=== PATIENT | male | born 2005 | race Caucasian/White ===

== ENCOUNTER 2024-05-07 19:49 | Emergency (ER) | payer OTHER, SELFPAY ==
--- NOTE | 2024-05-07 22:54 | RAD REPORT ---
EXAM DESCRIPTION: RAD - Elbow Right 3 View - 05/07/2024 8:30 pm CLINICAL HISTORY: PAIN COMPARISON: No comparisons TECHNIQUE: Right elbow, 3 views. FINDINGS: No fracture is identified. Elevated anterior and posterior elbow fat pads suggesting an ef fusion. There is no dislocation or periosteal reaction noted. No foreign body or other soft tissue abnormalit y. IMPRESSION: Elbow joint effusion suggesting an occult fracture. Please consider short-term radiograp hic follow-up in 7-10 days to evaluate for signs of healing.
--- NOTE | 2024-05-07 23:31 | ER ---
Nurse's Notes [facility] Name: Keshav Barr Age: 18 yrs Sex: Male : 2005 Arrival Date: 05/07/2024 Time: 19:49 Bed Treatment Private MD: Diagnosis: Effusion, right elbow-suspected occult fracture Presentation: 05/07 20:06 Chief complaint: Patient states: fell on right arm yesterday while skateboarding. tm6 Swollen, hurts to move. Coronavirus screen: Vaccine status: Patient reports receiving the 2nd dose of the covid vaccine. Ebola Screen: Patient negative for fever greater than or equal to 101.5 degrees Fahrenheit, and additional compatible Ebola Virus Disease symptoms Patient denies exposure to infectious person. Patient denies travel to an Ebola-affected area in the 21 days before illness onset. No symptoms or risks identified at this time. Initial Sepsis Screen: Does the patient meet any 2 criteria? No. Patient's initial sepsis screen is negative. Does the patient have a suspected source of infection? No. Patient's initial sepsis screen is negative. Risk Assessment: Do you want to hurt yourself or someone else? Patient reports no desire to harm self or others. Onset of symptoms was May 06, 2024. 20:06 Method Of Arrival: Ambulatory tm6 20:06 Acuity: JACK 4 tm6 Triage Assessment: 20:07 General: Appears in no apparent distress. Behavior is calm, cooperative. Pain: tm6 Complains of pain in right elbow Pain currently is 6 out of 10 on a pain scale. EENT: No signs and/or symptoms were reported regarding the EENT system. Neuro: Level of Consciousness is awake, alert, obeys commands, Oriented to person, place, time, situation. Cardiovascular: Patient's skin is warm and dry. Respiratory: Airway is patent Respiratory effort is even, unlabored, Respiratory pattern is regular, symmetrical. GI: No signs and/or symptoms were reported involving the gastrointestinal system. Abdomen is flat, non-distended. : No signs and/or symptoms were reported regarding the genitourinary system. Derm: No signs and/or symptoms reported regarding the dermatologic system. Musculoskeletal: Swelling present in right arm Reports pain in right elbow since yesterday. Pain is 6 out of 10 on a pain scale. Historical: - Allergies: 20:07 No Known Allergies; tm6 - PMHx: 20:07 None; tm6 - PSHx: 20:07 None; tm6 - Immunization history:: Client reports receiving the 2nd dose of the Covid vaccine. - Infectious Disease History:: Denies. - Social history:: Smoking status: Patient denies any tobacco usage or history of. Patient uses alcohol, but reports only rare drinking. street drugs, marijuana. Screenin:05 [facility] ED Fall Risk Assessment (Adult) History of falling in the last 3 months, me1 including since admission Yes- single mechanical fall (1 pt) Confusion or Disorientation No (0 pts) Intoxicated or Sedated No (0 pts) Impaired Gait No (0 pts) Mobility Assist Device Used No (0 pt) Altered Elimination No (0 pt) Score/Fall Risk Level 0 - 2 = Low Risk Maintained a safe environment, Provided non-skid footwear, Hourly rounding (assess needs \T\ fall precautionary measures) done. Abuse screen: Denies threats or abuse. Nutritional screening: No deficits noted. Tuberculosis screening: No symptoms or risk factors identified. Assessment: 21:05 General: Appears comfortable, well developed, well nourished, Behavior is calm, me1 cooperative, appropriate for age, Reports fell while skateboarding yesterday and hit his right arm. c/o pain 5/10 when moving his right arm, pain is close to the elbow, some edema noted. Pain: Denies pain. Complains of pain in right elbow Pain does not radiate. Pain currently is 0 out of 10 on a pain scale. at worst was 5 out of 10 on a pain scale. Quality of pain is described as stabbing, Pain began suddenly, Is episodic, Aggravated by increased activity, movement. Pain: Alleviated by rest. Neuro: Neuro: Level of Consciousness is awake, alert, obeys commands, Oriented to person, place, time, situation, Appropriate for age. Cardiovascular: Patient's skin is warm and dry. Respiratory: Airway is patent Trachea midline Respiratory effort is even, unlabored, Respiratory pattern is regular, symmetrical. GI: No signs and/or symptoms were reported involving the gastrointestinal system. : No signs and/or symptoms were reported regarding the genitourinary system. EENT: No signs and/or symptoms were reported regarding the EENT system. Derm: Skin is intact, is healthy with good turgor, Skin is pink, warm \T\ dry. Musculoskeletal: Reports pain in right arm and right elbow since yesterday. Injury Description: fell while skateboarding. Vital Signs: 20:05 BP 105 / 69; Pulse 64; Resp 19; Temp 97.1(TE); Pulse Ox 98% on R/A; Weight 64.86 kg; tm6 Height 5 ft. 8 in. ; Pain 6/10; 23:14 BP 107 / 62; Pulse 71; Resp 16; Temp 98.1; Pulse Ox 96% on R/A; me1 20:05 Body Mass Index 21.74 (64.86 kg, 172.72 cm) tm6 20:05 Pain Scale: Adult tm6 ED Course: 19:51 Patient arrived in ED. jj6 20:07 Triage completed. tm6 20:07 Norma Ken PA-C is PHCP. sb4 20:07 Chalino Fonseca MD is Attending Physician. sb4 20:10 Arm band placed on left wrist. tm6 20:31 Elbow Right 3 View XRAY In Process Unspecified. EDMS 21:05 Melanie Alfaro, DAVIN is Primary Nurse. me1 21:05 Patient has correct armband on for positive identification. Bed in low position. Call me1 light in reach. Side rails up X2. Provided Education on: POC. Verbalized understanding. . 21:05 No provider procedures requiring assistance completed. Patient did not have IV access me1 during this emergency room visit. 23:30 Negrito Butcher MD is Referral Physician. sb4 05/08 00:28 Orthoglass splint: posterior long arm splint applied to the right arm. Sling applied to oe right arm. Administered Medications: 05/07 23:51 Drug: Hydrocodone-Acetaminophen PO (7.5 mg-325 mg) 1 tabs PO once Route: PO; me1 23:51 Drug: Ondansetron PO 4 mg PO once Route: PO; me1 Medication: 21:05 VIS not applicable for this client. me1 Outcome: 23:31 Discharge ordered by . sb4 05/08 01:09 Discharged to home ambulatory, vc1 Condition: good Discharge instructions given to patient, Instructed on discharge instructions, follow up and referral plans. Demonstrated understanding of instructions, follow-up care, 01:09 Patient left the ED. vc1 Signatures: Dispatcher [employer] EDMS Brandon Gastelum Jennifer jj6 Kenyetta Gómez RN RN vc1 Norma Ken PA-C PACaroline alfonso4 Melanie Alfaro RN RN me1 Daisy De La Cruz RN RN tm6 Corrections: (The following items were deleted from the chart) 05/07 20:08 20:07 PSHx: broken wrist and elbow; tm6 tm6 21:05 20:06 Chief complaint: Patient states: fell on right arm yesterday while skateboarding. me1 Swollen, hurts to move. tm6
--- NOTE | 2024-05-07 23:31 | EDPHYS ---
Physician Documentation [facility] Name: Keshav Barr Age: 18 yrs Sex: Male : 2005 Arrival Date: 05/07/2024 Time: 19:49 Bed Treatment Private MD: ED Physician Chalino Fonseca HPI: 05/07 20:45 This 18 yrs old Male presents to ER via Ambulatory with complaints of Arm Injury. sb4 20:45 The patient or guardian complains of injury, pain, that is acute. The complaints affect sb4 the right elbow. Context: The problem was sustained outdoors, resulted from a fall, while skating. Onset: The symptoms/episode began/occurred yesterday. Treatment prior to arrival includes: no previous treatment. Modifying factors: The symptoms are alleviated by remaining still, the symptoms are aggravated by movement. Historical: - Allergies: 20:07 No Known Allergies; tm6 - PMHx: 20:07 None; tm6 - PSHx: 20:07 None; tm6 - Immunization history:: Client reports receiving the 2nd dose of the Covid vaccine. - Infectious Disease History:: Denies. - Social history:: Smoking status: Patient denies any tobacco usage or history of. Patient uses alcohol, but reports only rare drinking. street drugs, marijuana. ROS: 23:50 Constitutional: Negative for fever, chills, and weight loss, sb4 23:50 MS/extremity: Positive for injury or acute deformity, pain, tenderness, of the right elbow, 23:50 All other systems are negative, Exam: 23:50 Constitutional: This is a well developed, well nourished patient who is awake, alert, sb4 and in no acute distress. Head/Face: Normocephalic, atraumatic. Eyes: Extra-ocular motions intact. Periorbital areas with no swelling, redness, or edema. ENT: Mucous membranes moist. Skin: Warm, dry with normal turgor. Normal color with no rashes, no lesions, and no evidence of cellulitis. 23:50 Musculoskeletal/extremity: Circulation is intact in all extremities. Pulses: are normal with no appreciated deficits, Perfusion: the extremity is normally perfused throughout, Sensation intact. Joints: the right elbow displays pain at rest, painful range of motion, Vital Signs: 20:05 BP 105 / 69; Pulse 64; Resp 19; Temp 97.1(TE); Pulse Ox 98% on R/A; Weight 64.86 kg; tm6 Height 5 ft. 8 in. ; Pain 6/10; 23:14 BP 107 / 62; Pulse 71; Resp 16; Temp 98.1; Pulse Ox 96% on R/A; me1 20:05 Body Mass Index 21.74 (64.86 kg, 172.72 cm) tm6 20:05 Pain Scale: Adult tm6 MDM: 20:11 Patient medically screened. sb4 23:51 Data reviewed: vital signs, nurses notes, radiologic studies, and as a result, I will sb4 discharge patient. Counseling: I had a detailed discussion with the patient and/or guardian regarding the historical points, exam findings, and any diagnostic results supporting the discharge/admit diagnosis, radiology results, to return to the emergency department if symptoms worsen or persist or if there are any questions or concerns that arise at home. 05/07 20:11 Order name: Elbow Right 3 View XRAY; Complete Time: 23:08 sb4 05/07 23:26 Order name: Splint: long arm, right sb4 05/07 23:26 Order name: Sling sb4 Administered Medications: 23:51 Drug: Hydrocodone-Acetaminophen PO (7.5 mg-325 mg) 1 tabs PO once Route: PO; me1 23:51 Drug: Ondansetron PO 4 mg PO once Route: PO; me1 Disposition Summary: 05/07/24 23:31 Discharge Ordered Notes: Location: Home sb4 Problem: new sb4 Symptoms: have improved sb4 Condition: Stable sb4 Diagnosis - Effusion, right elbow - suspected occult fracture sb4 Followup: sb4 - With: Negrito Butcher MD - When: 7 - 10 days - Reason: Recheck today's complaints, Re-evaluation by your physician Discharge Instructions: - Discharge Summary Sheet sb4 - Elbow Fracture, Pediatric sb4 Forms: - Patient Portal Instructions sb4 - Leadership Thank You Letter sb4 Prescriptions: - meloxicam 7.5 mg Oral tablet - take 1 tablet ORAL route daily; 14 tablet; Refills: 0, Product Selection sb4 Permitted Addendum: 05/09/2024 01:17 Co-signature as Attending Physician, Chalino Fonseca MD I agree with the assessment and c centeno plan of care. Signatures: Dispatcher [employer] EDChalino Townsend MD MD cha Brown, Sophia PACaroline PA-Rowan sb4 Melanie Alfaro RN RN me1 Daisy De La Cruz RN RN tm6 Corrections: (The following items were deleted from the chart) 05/07 20:08 20:07 PSHx: broken wrist and elbow; tm6 tm6 20:11 20:11 Elbow Right 3 View+RAD.RAD.BRZ ordered. EDMS EDMS
[2024-05-07] MEDS ORDERED: ONDANSETRON 4 MG (ODT) TAB ONE (23:49)
[2024-05-07] MEDS ORDERED: HYDROCODONE/APAP 7.5/325 MG TAB ONE (23:49)
[2024-05-08 01:46] VITALS: BP 107/62; TEMP 98.1; O2SAT 96
== END 2024-05-08 01:09 | disposition home or self-care (01) ==
LOC: ER 19:49
DX: M25.421 Effusion, right elbow (principal)
CPT/HCPCS: Q0162